=== PATIENT | male | born 1960 ===

== ENCOUNTER 2016-10-06 08:24 | Emergency (ER) | payer SELFPAY ==
[2016-10-06 08:28] VITALS: BP 130/78; PULSE 88; RESP 18; TEMP 97.6; O2SAT 98
[2016-10-06] MEDS ORDERED: DiphenhydrAMINE 50 mg/ml Inj IVP STA (08:48)
[2016-10-06] MEDS ORDERED: Sodium Chloride 0.9% 1,000 ML IV ONE (08:48)
--- NOTE | 2016-10-06 09:14 | C.PDOC ---
History Of Present Illness 56-year-old male, presents to the emergency department with complaints of allergies for the past three days. Pt is complaining of persistent rhinorrhea, that he is taking Claritin for. Patient notes that he is weak and is requesting IV. Pt has subjective fever at home. No other complaints at this time. Time Seen by Provider: 10/06/16 08:40 Chief Complaint (Nursing): Fever History Per: Patient History/Exam Limitations: no limitations Onset/Duration Of Symptoms: Days Current Symptoms Are (Timing): Still Present Past Medical History Reviewed: Historical Data, Nursing Documentation, Vital Signs Vital Signs: Last Vital Signs Temp 97.6 F 10/06/16 08:28 Pulse 88 10/06/16 08:28 Resp 18 10/06/16 08:28 BP 130/78 10/06/16 08:28 Pulse Ox 98 10/06/16 09:49 Family History: States: Unknown Family Hx - Social History Hx Tobacco Use: No Hx Alcohol Use: No Hx Substance Use: No - Immunization History Hx Tetanus Toxoid Vaccination: No Hx Influenza Vaccination: No Hx Pneumococcal Vaccination: No Review Of Systems Except As Marked, All Systems Reviewed And Found Negative. Constitutional: Positive for: Fever, Weakness. Negative for: Chills, Malaise ENT: Positive for: Nose Discharge Cardiovascular: Negative for: Chest Pain, Palpitations Gastrointestinal: Negative for: Vomiting Musculoskeletal: Negative for: Neck Pain, Back Pain Skin: Negative for: Rash Neurological: Negative for: Weakness, Numbness, Headache, Dizziness Physical Exam - Physical Exam Appears: Non-toxic, No Acute Distress Skin: Warm, Dry, No Rash Head: Atraumatic, Normacephalic Eye(s): bilateral: Normal Inspection, PERRL, EOMI Nose: Other (boggy turbinates) Oral Mucosa: Moist Lips: Normal Appearing Neck: Normal ROM, Supple Chest: Symmetrical Cardiovascular: Rhythm Regular Respiratory: Normal Breath Sounds, No Accessory Muscle Use Extremity: Normal ROM Neurological/Psych: Oriented x3, Normal Speech ED Course And Treatment O2 Sat by Pulse Oximetry: 98 Medical Decision Making Medical Decision Making: Plan: * CMP * CBC * Benadryl, IVF * Reassess and Disposition 09:49 Patient eloped from ED. Disposition - Disposition Disposition: ELOPEMENT - ER ONLY Disposition Time: 11:28 Condition: GOOD Instructions: Weakness (ED) - Clinical Impression Clinical Impression: Nasal discharge, Weakness - Scribe Statement The provider has reviewed the documentation as recorded by the Thoribe Nery Calzada All medical record entries made by the Thoribe were at my direction and personally dictated by me. I have reviewed the chart and agree that the record accurately reflects my personal performance of the history, physical exam, medical decision making, and the department course for this patient. I have also personally directed, reviewed, and agree with the discharge instructions and disposition.
[2016-10-06] MEDS ORDERED: DiphenhydrAMINE 50 mg/ml Inj ONE (09:17)
[2016-10-06] MEDS ORDERED: Sodium Chloride 0.9% 1,000 ML ONE (09:17)
== END 2016-10-06 09:57 | disposition left against medical advice (07) ==
LOC: C.ER 08:24
DX: J34.89 Other specified disorders of nose and nasal sinuses (principal); R53.1 Weakness